=== PATIENT | male | born 1945 | race Two or more races ===

== ENCOUNTER → 2023-02-27 | Outpatient (CLI) | payer MEDICARE, OTHER ==
--- NOTE | 2023-03-03 09:52 | CT ---
EXAMINATION TYPE: CT chest w con DATE OF EXAM: 02/27/2023 COMPARISON: none HISTORY: R91.8 OTHER NONSPECIFIC ABNORMAL FINDING OF LUNG F Automated exposure control for dose reduction was used. CONTRAST: CT scan of the chest is performed with IV Contrast, patient injected with 100 mL of Isovue 370. FINDINGS: LUNGS: Left lower lobe pleural-based mass measuring 6.2 x 4.4 x 5.2 cm. Other internal and peripheral calcifications noted. Correlate for neoplasm. Emphysematous bleb seen at the left lung base. The rig ht lung is clear. No additional nodules or masses present. MEDIASTINUM: There are no greater than 1 cm hilar or mediastinal lymph nodes. No pericardial effusi on is seen. Thoracic aorta is of normal caliber. The heart is not enlarged. UPPER ABDOMEN: L-spine cholelithiasis seen. OTHER: No additional significant abnormality is seen. IMPRESSION: 1. Pleural-based left lower lobe masslike density. Neoplasm is not excluded. PET/CT or tissue diagnos is is recommended.
== END | disposition home or self-care (01) ==
LOC: RADCTMAIN 15:07 → EEVIPCON 15:30
PROVIDERS: ATTEND Internal Medicine Geriatric Medicine
DX: J98.4 Other disorders of lung (principal); R91.8 Other nonspecific abnormal finding of lung field
CPT/HCPCS: 71260; Q9967

== ENCOUNTER → 2023-04-16 | Outpatient (CLI) | payer MEDICARE, OTHER ==
--- NOTE | 2023-04-16 11:02 | PE ---
EXAMINATION TYPE: PET CT fusion skull to thigh DATE OF EXAM: 04/16/2023 CLINICAL INDICATION:Male, 77 years old with history of R91.8 Lung mass; TECHNIQUE: Following the intravenous administration of 9.9 mCi of F-18 FDG, whole body images are p erformed from the skull base to the midthigh. Images are reviewed on the computer in the coronal, ax ial, and sagittal planes. Reconstructed rotating images are created on independent workstation and r eviewed on the computer. A non-contrast CT is performed in conjunction with the PET scan. Glucose l evel 111 mg/dL CT DLP: 686 mGycm, Automated exposure control for dose reduction was used. COMPARISON: CT 02/27/2023, PET/CT None, FINDINGS: Mediastinal SUV mean is 2.6. Hepatic parenchyma SUV mean is 3.3. SKULL BASE AND NECK: No suspicious radiotracer activity. CHEST, MEDIASTINUM, AND HILAR REGION: * There is a left lower lobe consolidation with intense radiotracer uptake max SUV 19.0 measuring 6. 7 x 6.9 x 3.9 cm. ABDOMEN AND PELVIS: * Left adrenal nodule with intensity of tracer uptake max SUV 12.97 measuring 23 x 18 mm. * Smaller subcentimeter nodule in the right adrenal gland max SUV 5.4 MUSCULOSKELETAL STRUCTURES: * Focus of radiotracer uptake near the right acetabulum max SUV 9.9. OTHER CT: Atherosclerosis of the carotid bifurcations. Mild cardiomegaly with coronary artery atheros clerosis which is severe. Aortic valve calcifications are severe. Layering gallstones. Scattered colo najma diverticula. IMPRESSION: 1. Left lower lung mass with intense uptake compatible with malignancy. No mediastinal FDG avid lymp h nodes identified at this time. 2. There is a left adrenal gland nodule measuring up to 23 mm and a right adrenal gland focus of upt tayler suspicious for metastatic disease. 3. Indeterminate right periacetabular osseous focus of uptake.
== END | disposition home or self-care (01) ==
LOC: RADPETMAIN 08:14
PROVIDERS: ATTEND Internal Medicine
DX: E27.8 Other specified disorders of adrenal gland (principal); R91.8 Other nonspecific abnormal finding of lung field
CPT/HCPCS: 78815; A9552

== ENCOUNTER 2023-05-14 08:46 | Day surgery (SDC) | payer MEDICARE, OTHER ==
[2023-05-14 09:22] LABS: Mean Platelet Volume 8.5; Platelet Count 297 k/uL (150-450)
[2023-05-14 09:27] LABS: INR 1.1 (<1.2); Prothrombin Time 11.4 sec (10.0-12.5)
[2023-05-14 10:15] VITALS: BP 133/67; PULSE 58; RESP 18; TEMP 97.9
== END 2023-05-14 10:32 | disposition other institution (70) ==
LOC: RADPROMAIN 08:46
PROVIDERS: ATTEND Internal Medicine
DX: Z53.8 Procedure and treatment not carried out for other reasons (principal); R91.8 Other nonspecific abnormal finding of lung field
CPT/HCPCS: 36415; 85049; 85610